=== PATIENT | male | born 1980 | race Caucasian/White ===

== ENCOUNTER → 2018-03-16 | Outpatient (CLI) | payer BC ==
[2015-11-15 14:46] VITALS: BP 209/119
[~2018-03-16] MED LIST: AMBIEN10 MG PO; BUSPIRONE PO; DILAUDID4 M1 PO; FLEXERIL 1010 MG/TAB PO; IBUPROFEN800 MG PO; LUNESTA3 M1 PO; PREDNISONE20 M1 PO; WELCHOL625 MG PO; XANAX1 M1 PO
[2018-03-16 18:21] LABS: BUN/CREATININE RATIO 22.8 (6.0-26.0); CALCIUM 8.8 mg/dL (8.4-10.2); POTASSIUM 4.2 mmol/L (3.6-5.0)
== END ==
LOC: LAB 17:21
PROVIDERS: Physician Assistant
DX: R25.2 Cramp and spasm (principal)

== ENCOUNTER 2019-08-09 13:30 | Outpatient (RCR) | payer BC ==
[2015-11-15 14:46] VITALS: BP 209/119
== END 2019-08-09 14:00 | disposition still patient (30) ==
LOC: PT 13:30
DX: M25.511 Pain in right shoulder (principal)

== ENCOUNTER 2019-10-06 10:30 | Outpatient (RCR) | payer BC ==
[2015-11-15 14:46] VITALS: BP 209/119
== END 2019-10-06 11:00 | disposition still patient (30) ==
LOC: PT 10:30
DX: S43.101A Unspecified dislocation of right acromioclavicular joint, initial encounter (principal)

== ENCOUNTER 2019-10-06 11:00 | Outpatient (RCR) | payer OTHER ==
[2015-11-15 14:46] VITALS: BP 209/119
== END 2019-10-22 | disposition still patient (30) ==
LOC: PT
DX: Z47.1 Aftercare following joint replacement surgery (principal); Z96.651 Presence of right artificial knee joint

== ENCOUNTER → 2022-03-18 | Outpatient (CLI) | payer OTHER | LOC: RAD 14:56 | DX: M79.661 Pain in right lower leg (principal); M79.89 Other specified soft tissue disorders ==

== ENCOUNTER 2024-07-03 22:30 | Emergency (ER) | payer BC ==
[~2024-07-03] VITALS: Ht 182.9 cm; Wt 121.3 kg
[2024-07-03] MEDS ORDERED: diphenhydrAMINE 50 MG/ML 1 ML VIAL IV ONE (23:00)
[2024-07-03] MEDS ORDERED: Ketorolac 30 MG/ML VIAL IV ONE (23:00)
[2024-07-03] MEDS ORDERED: NS 1,000 ML IV SCH (23:00)
[2024-07-03] MEDS ORDERED: HYDROXYZINE HCL25 M1 PO (23:40)
[2024-07-03] MEDS ORDERED: TOPAMAX50 M1 PO (23:41)
[2024-07-03] MEDS ORDERED: Orphenadrine 60 MG/2ML AMP IV ONE (23:45)
[2024-07-03] MEDS ORDERED: dexAMETHasone 4 MG/ML VIAL IV ONE (23:45)
[2024-07-03] MEDS ORDERED: Lidocaine 4% Topical Patch TP ONE (23:45)
[2024-07-04 00:19] VITALS: BP 114/80
== END 2024-07-04 00:18 | disposition home or self-care (01) ==
LOC: ED 22:30
DX: G43.909 Migraine, unspecified, not intractable, without status migrainosus (principal); Z85.72 Personal history of non-Hodgkin lymphomas
CPT/HCPCS: J0780; J1100; J1200; J1885; J2360; J7030